=== PATIENT | female | born 1945 | race Caucasian/White ===

== ENCOUNTER → 2017-01-07 | Outpatient (CLI) | payer OTHER ==
[~2017-01-07] MED LIST: ACET-1138 PO; ASPEC81 PO; DTR/5 PO; FOSI20TA2 PO; GABA-112 PO; LEVO75TA PO; PEDICHW34 PO; SNK PO; ULT50X PO
--- NOTE | 2017-01-07 16:19 | MAMMOGRAPHY REPORT ---
UNILATERAL LEFT DIGITAL DIAGNOSTIC MAMMOGRAM: 01/07/2017 CLINICAL HISTORY: 71-year-old woman called back from screening mammography for possible clustered mi crocalcifications in the left breast. No family history of breast cancer. TECHNIQUE: Spot magnification left CC and ML views were obtained. COMPARISON: Comparison is made to exams dated: 12/25/2016 mammogram, 10/20/2015 mammogram, and 09/09/19 15 mammogram - [facility]. BREAST COMPOSITION: The tissue of the left breast is heterogeneously dense, which may obscure small masses. FINDINGS: There are vascular calcifications and scattered coarse benign calcifications within the v isualized left breast. However, there are also small faint clusters and groupings of microcalcifica tions in the central and slightly lateral left breast that were not definitely seen on prior mammogr ams to confirm stability. In particular, there is a small grouping of 3-4 round microcalcifications and adjacent faint amorphous microcalcifications in the lateral posterior breast, and slightly more medial and anterior is a faint grouping of amorphous microcalcifications. A few other round microc alcifications are scattered in the visualized breast. Options of short interval follow-up exams elvi junito sampling one of the clusters and following the other clusters in short intervals were provided t o the patient. There is no obvious associated asymmetry, mass or architectural distortions in the a shadi of the microcalcifications. We will opt to sample the dominant cluster in the lateral posterior left breast, and follow the other microcalcifications in short intervals. IMPRESSION: ACR BI-RADS CATEGORY 4B: INTERMEDIATE SUSPICION FOR MALIGNANCY Left breast stereotactic guided biopsy is recommended for a small cluster of punctate and amorphous microcalcifications in the lateral posterior breast. Pending benign pathology results, a short interval follow-up diagnostic left mammogram is recommend to ensure stability of other faint clusters of amorphous microcalcifications. These results and recommendations were discussed with the patient at the time of the exam. She tent atively scheduled the biopsy prior to leaving our department. Approximately 10% of breast cancers are not detected with mammography. A negative mammographic repor t should not delay biopsy if a clinically suggestive mass is present. Donna Mccarty M.D. ay/:01/07/2017 15:07:07 Truck Loader And Unloader: Elda DÍAZ(R)(M), [facility] letter sent: Abnormal 4/5 BI-RADS Code: ACR BI-RADS Category 4B: Intermediate Suspicion For Malignancy
== END | disposition home or self-care (01) ==
LOC: C.MAMM 14:00
PROVIDERS: ATTEND Nurse Practitioner
DX: R92.0 Mammographic microcalcification found on diagnostic imaging of breast (principal)

== ENCOUNTER → 2017-01-13 | Outpatient (CLI) | payer OTHER ==
[2017-01-13 18:15] LABS: ALT/SGPT 25 U/L (12-78); AST/SGOT 16 U/L (15-37); BLOOD UREA NITROGEN 21 mg/dl (7-18); BUN/CREATININE RATIO 20.5 (10-20); CARBON DIOXIDE 32 mmol/L (21-32); CHLORIDE 103 mmol/L (98-107); CHOLESTEROL 185 mg/dl (0-200); GLUCOSE 90 mg/dl (70-99); POTASSIUM 4.4 mmol/L (3.5-5.1); SODIUM 140 mmol/L (136-145); TRIGLYCERIDES 92 mg/dl (0-150); VERY LOW DENSITY LIPOPROT CALC 18 mg/dl
[2017-01-13 18:16] LABS: CALCIUM 9.5 mg/dl (8.5-10.1)
[2017-01-13 18:25] LABS: ALB/GLOB RATIO 1.1 (0.9-2); ALKALINE PHOSPHATASE 137 U/L (45-117); CHOLESTEROL/HDL RATIO 3.4; HDL CHOLESTEROL 54 mg/dl; LDL CHOLESTEROL CALCULATED 113 mg/dl
== END | disposition home or self-care (01) ==
LOC: C.LABBFT 09:53
PROVIDERS: ATTEND Nurse Practitioner
DX: E78.5 Hyperlipidemia, unspecified (principal); E03.9 Hypothyroidism, unspecified

== ENCOUNTER → 2017-01-14 | Outpatient (CLI) | payer OTHER ==
--- NOTE | 2017-01-14 13:52 | Discharge Instructions ---
Discharge Instructions Procedure Procedure Date: January 14, 2017. Reason for visit: Left Calcifications. Discharge Discharge Date: January 14, 2017. Discharge Diagnosis: post left breast stereotactic guided biopsy Instructions Activity Recommendations: Additional Limitations (see below) Return to School/Work: no limitations Recommended Home Diet: No Limitations Provider Instructions: ACTIVITY RECOMMENDATIONS: * No lifting, pushing, pulling or exercising the affected side for three days. RETURN TO SCHOOL/WORK: * You may return to work/school after the procedure, but do not perform any strenuous activities for 24 to 48 hours. MEDICATIONS: * Tylenol (two 325 mg) every four to six hours if needed for mild pain (if not allergic to Tylenol). DIET: * Resume previous diet. SPECIAL CARE INSTRUCTIONS: * Keep biopsy site dry for 24 hours. May shower after 24 hours, but do not soak (bathe) incision. * May remove Tegaderm (plastic patch) tomorrow AFTER showering. * Leave the steri-strips on for one week. Allow the steri-strips to fall off by themselves. If not off after one week, you may remove them. You may place a Bandaid crosswise over the strips, if desired. * Apply ice 10 minutes on and 10 minutes off as needed. * Wear a bra at bedtime to sleep more comfortably for 2-3 days. * Your referring physician should have the results after approximately 5 to 7 business days. * Call for unusual bleeding, fever, drainage, etc or if you have any questions call [phone] during normal business hours or after hours call Dr Mccarty, . FOLLOW UP VISIT: Follow-up with Referring Physician as scheduled. Allergies Coded Allergies: Oxycodone (Verified Adverse Reaction, Intermediate, N/V, 08/14/15) Sumi Rojas Recommendations: Call your doctor if: * Temperature above 101 degrees * Pain not relieved by pain medicine ordered * There is increased drainage or redness from any incision * You have any unanswered questions or concerns. Your Doctors Instructions noted above were prepared by provider Donna Mccarty. Patient Signature Section: Patient Instructions Signature Page Rosy Peña Patient (or Guardian) Signature/Date: I have read and understand the instructions given to me by my caregivers. Caregiver/RN/Doctor Signature/Date: The above-named patient and/or guardian has received patient instructions on this date. + Original Patient Signature Page (only) stays with chart. Please make copy for patient.
--- NOTE | 2017-01-14 15:21 | MAMMOGRAPHY REPORT ---
THIS REPORT HAS BEEN AMENDED. AMENDMENT: 01/22/2017 Donna Mccarty M.D. Pathology results from the stereotactic guided biopsy of clustered microcalcifications in the lateral left breast yielded fibrocystic change with microcalcifications. Sclerosing adenosis. No tumor see n. The pathology results are concordant with the imaging appearance. As per prior diagnostic mammog shabnam report recommendations, a six-month follow-up left diagnostic mammogram including repeat spot mag nification views is recommended to ensure stability of other clustered microcalcifications identified in the left breast. STEREOTACTIC GUIDED BIOPSY LEFT BREAST: 01/14/2017 CLINICAL HISTORY: Cluster of indeterminate microcalcifications in the lateral posterior left breast. Patient presents for stereotactic guided biopsy. COMPARISON: Comparison is made to exams dated: 01/07/2017 mammogram, 12/25/2016 mammogram, 10/20/2015 ma mmogram, and 09/09/2014 mammogram - [facility]. PATIENT CONSENT: After explaining the risks, benefits and alternatives of the procedure to the patien t, informed consent was obtained both verbally and in writing. Specific risks include: Bleeding, inf ection, puncture of adjacent structure, nontarget biopsy, sampling error, metal allergy and medicatio n reaction. PROCEDURE DESCRIPTION: A time-out was performed and the left breast was confirmed as the site of biop sy. The patient was placed prone on the stereotactic biopsy table and the breast was placed in CC fro m above compression. A digester capper image was obtained but the microcalcifications were not clearly identifi ed. Then positioning was changed to CC from below compression. A digester capper image did demonstrate the gr ouped microcalcifications in question. They are amenable to sterotactic biopsy. Then +15 and -15 s tereo pair images were obtained. The calcifications were targeted utilizing the coordinates obtained by the computer. The skin was prepped with Betadine. 1% Lidocaine with and without epinipherine was administered as local anesthesia. A small skin incision was made. Through the incision, the needle w as inserted to the depth determined by the computer. 10 samples were obtained using a Playdemic 9-g auge vacuum-assisted biopsy device. The specimen radiograph demonstrated several medical collections representative micro calcifications, therefore, a metallic marker was placed at the biopsy site. There was no immediate co mplication. Hemostasis was achieved after several minutes of manual compression. The samples were se nt to pathology in 2 appropriately labeled containers, with calcifications and without calcifications , but all of the samples were obtained from the same single biopsy site. Postprocedure left CC and ML views demonstrate a new double-shaped metallic biopsy marker and no sign ificant hematoma in the lower outer posterior left breast, at the site of the biopsied clustered micr ocalcifications in question. Pending benign pathology results, a follow-up diagnostic mammogram of the left breast including spot magnification views is recommended to assure stability of other faint clusters of microcalcifications seen on the diagnostic mammograms dated 01/07/2017. IMPRESSION: STEREOTACTIC GUIDED BIOPSY Status post stereotactic guided biopsy of a small cluster of rounded punctate microcalcifications in the lower outer posterior left breast, with biopsy marker placed at the site. The patient will receive notification of the biopsy results from her referring physician. Pending benign pathology results, a follow-up diagnostic mammogram of the left breast including spot magnification views is recommended to assure stability of other faint clusters of microcalcifications seen on the diagnostic mammograms dated 01/07/2017. Donna Mccarty M.D. ay/:01/14/2017 14:06:27 Sales Development Executive: Kallie Miller, [facility]
--- NOTE | 2017-01-14 15:23 | MAMMOGRAPHY REPORT ---
UNILATERAL LEFT DIGITAL DIAGNOSTIC MAMMOGRAM: 01/14/2017 CLINICAL HISTORY: Status post stereotactic guided biopsy of faint grouped microcalcifications in the lateral left breast. Please refer to the report from left breast stereotactic guided biopsy performed at the same time fo r full detail. IMPRESSION: POST PROCEDURE IMAGING FOR MARKER PLACEMENT Please refer to the report from left breast stereotactic guided biopsy performed at the same time fo r full detail. Pending benign pathology results, a follow-up diagnostic left mammogram including spot magnification views is recommended to ensure stability of other faint non-biopsied clusters of microcalcification s, described on the previous diagnostic mammogram report. Approximately 10% of breast cancers are not detected with mammography. A negative mammographic repor t should not delay biopsy if a clinically suggestive mass is present. Donna Mccarty M.D. ay/:01/14/2017 13:48:08 B2B Sales Executive: Kallie Miller, [facility] BI-RADS Code: Post Procedure Imaging For Marker Placement
== END | disposition home or self-care (01) ==
LOC: C.MAMM 12:32
PROVIDERS: ATTEND Nurse Practitioner
DX: R92.0 Mammographic microcalcification found on diagnostic imaging of breast (principal); N60.12 Diffuse cystic mastopathy of left breast; N60.22 Fibroadenosis of left breast

== ENCOUNTER → 2017-01-29 | Day surgery (SDC) | payer OTHER ==
[~2017-01-29] VITALS: Ht 152.4 cm; Wt 70.9 kg
[~2017-01-29] MED LIST changes: +SODIUM CHLORIDE 0.9% 500ML 500 ML IV ONE
[2017-01-29 14:36] VITALS: Ht 152.4 cm; Wt 70.9 kg
--- NOTE | 2017-01-29 15:54 | Endo History and Physical ---
History & Physical Date of Service: Jan 29, 2017. Chief Complaint: HISTORY OF POLYPS Referring Physician: DR KELLY History of Present Illness 71 yo CF who presents for colonoscopy secondary to history of colon polyps. Past Medical History Arthritis Past Surgical History Hx Cardiac Surgery: No Hx Internal Defibrillator: No Hx Pacemaker: No Hx Abdominal Surgery: Yes (Gall bladder 5years ago, Hernia 16 years ago) Hx Post-Op Nausea and Vomiting: No (DENIES ANY COMPLICATIONS W/ ANESTHESIA.) Hx Cancer Surgery: No Hx Thoracic Surgery: No Hx Orthopedic: Yes (Rods in both legs 16 years ago. Left knee replaced 2007, Right hip 10/2015) Hx Urinary Tract Surgery: No Family History Polyp Social History Smoking Status: Never Smoker Hx Substance Use: No Hx Alcohol Use: No Allergies Coded Allergies: Aspirin (Unverified Allergy, Unknown, GI SYMPTOMS, 01/29/17) Grass (Unverified Allergy, Unknown, RASH, 01/29/17) FACIAL SWELLING Oxycodone (Verified Adverse Reaction, Intermediate, N/V, 01/29/17) Current Medications Reported Home Medications Medications Dose Route/Sig Max Daily Dose Days Date Category Gummi Bear Multivitamin/M (Pediatric Multiple Vitamin W/) 1 Chw Chw 2 PO DAILY 01/29/17 Reported Neurontin (Gabapentin) 100 Mg Cap 100 Mg PO TID 01/29/17 Reported Tylenol Extra Strength (Acetaminophen) 500 Mg Tab 1,000 Mg PO Q8H 2 11/20/15 Rx Synthroid (Levothyroxine Sodium) 75 Mcg Tab 75 Mcg PO DAILY 11/16/15 Reported Ditropan (Oxybutynin Chloride) 5 Mg Tab 5 Mg PO BID 01/11/12 Reported Vital Signs Weight (Kilograms): 70.9 Height (Feet): 5 Height (Inches): 0 Date Time Temp Pulse Resp B/P (MAP) Pulse Ox O2 Delivery O2 Flow Rate FiO2 01/29/17 15:17 36.2 62 20 180/62 99 Room Air Physical Exam General Appearance: WD/WN, no apparent distress Respiratory/Chest: Auscultation: breath sounds normal Cardiovascular: Heart Auscultation: RRR Abdomen: Bowel Sounds: normal Inspection & Palpation: soft, non-distended, no tenderness, guarding & rebound Assessment and Plan Assessment: 71 yo CF who presents for colonoscopy secondary to history of colon polyps. Plan: Proceed with colonoscopy.
--- NOTE | 2017-01-29 16:12 | Discharge Instructions ---
Endoscopy Patient Instructions Date / Procedure(s) Performed Jan 29, 2017. Colonoscopy Allergy Information Coded Allergies: Aspirin (Unverified Allergy, Unknown, GI SYMPTOMS, 01/29/17) Grass (Unverified Allergy, Unknown, RASH, 01/29/17) FACIAL SWELLING Oxycodone (Verified Adverse Reaction, Intermediate, N/V, 01/29/17) Discharge Date / Findings Jan 29, 2017. Diverticulosis Internal hemorrhoids Medication Instructions OK to resume all medications today as prescribed Medications Dose Route/Sig Max Daily Dose Days Date Category Gummi Bear Multivitamin/M (Pediatric Multiple Vitamin W/) 1 Chw Chw 2 PO DAILY 01/29/17 Reported Neurontin (Gabapentin) 100 Mg Cap 100 Mg PO TID 01/29/17 Reported Tylenol Extra Strength (Acetaminophen) 500 Mg Tab 1,000 Mg PO Q8H 2 11/20/15 Rx Synthroid (Levothyroxine Sodium) 75 Mcg Tab 75 Mcg PO DAILY 11/16/15 Reported Ditropan (Oxybutynin Chloride) 5 Mg Tab 5 Mg PO BID 01/11/12 Reported Provider Instructions Activity Restrictions - No exercising or heavy lifting for 24 hours. - Do not drink alcohol the day of the procedure. - Do not drive a car or operate machinery until the day after the procedure. - Do not make any important decisions or sign important papers in 24 hours after the procedure. Following Day: - Return to full activity which may include returning to work/school. Diet Start your diet with liquids and light foods (jello, soup, juice, toast). Then eat your usual diet if not nauseated. Treatment For Common After Affects For mild abdominal pain, bloating, or excessive gas: - Rest - Eat lightly - Lie on right side Follow-Up Information Follow-up with DR KELLY as scheduled Anesthesia Information What You Should Know You have had a procedure that required some medicine to reduce anxiety and discomfort. This treatment is called moderate sedation. After receiving the treatment, you may be sleepy, but you will be able to breathe on your own. The effects of the treatment may last for several hours. Follow these instructions along with Activity/Diet recommendations noted above: * Do NOT do anything where dizziness or clumsiness would be dangerous. * Rest quietly at home today, then you can be up and about tomorrow. * Have a responsible person stay with you the rest of today. * You may have had an I.V. today. If so, you may take the dressing off later today. Recommendations Call your doctor if: * Trouble breathing * Continuous vomiting for more than 24 hours * Temperature above 101 degrees * Severe abdominal pain or bloating * Pain not relieved by pain medicine ordered * There is increased drainage or redness from any incision * A large amount of rectal bleeding greater than 2-3 tablespoons. (If you had a polyp/s removed or have hemorrhoids, a small amount of blood - from the rectum is to be expected.) * You have any unanswered questions or concerns. IN THE EVENT OF A SERIOUS EMERGENCY, GO TO THE NEAREST EMERGENCY ROOM Your discharge instructions were prepared by provider José Torre. Patient Instructions Signature Page Rosy Peña Patient (or Guardian) Signature/Date: I have read and understand the instructions given to me by my caregivers. Caregiver/RN/Doctor Signature/Date: The above-named patient and/or guardian has received patient instructions on this date. + Original Patient Signature Page (only) stays with chart. Please make copy for patient.
--- NOTE | 2017-01-29 16:16 | GI REPORT ---
Procedure Date: 01/29/2017 3:36 PM Procedure: Colonoscopy Indications: High risk colon cancer surveillance: Personal history of colonic polyps Medicines: Monitored Anesthesia Care Complications: No immediate complications. Estimated Blood Loss: Estimated blood loss: none. Procedure: Pre-Anesthesia Assessment: - Prior to the procedure, a History and Physical was performed, and patient medications and allergies were reviewed. The patient's tolerance of previous anesthesia was also reviewed. The risks and benefits of the procedure and the sedation options and risks were discussed with the patient. All questions were answered, and informed consent was obtained. Prior Anticoagulants: The patient has taken no previous anticoagulant or antiplatelet agents. ASA Grade Assessment: III - A patient with severe systemic disease. After reviewing the risks and benefits, the patient was deemed in satisfactory condition to undergo the procedure. After I obtained informed consent, the scope was passed under direct vision. Throughout the procedure, the patient's blood pressure, pulse, and oxygen saturations were monitored continuously. The scope was introduced through the anus and advanced to the terminal ileum. The colonoscopy was performed without difficulty. The patient tolerated the procedure well. The quality of the bowel preparation was good. The terminal ileum, ileocecal valve, appendiceal orifice, and rectum were photographed. Findings: Multiple small-mouthed diverticula were found in the sigmoid colon. Non-bleeding internal hemorrhoids were found during retroflexion. The hemorrhoids were small. Impression: - Diverticulosis in the sigmoid colon. - Non-bleeding internal hemorrhoids. - No specimens collected. Recommendation: - Resume previous diet. - Continue present medications. - No repeat colonoscopy due to age and the absence of advanced adenomas. - Return to primary care physician as previously scheduled. José Torre, DO 01/29/2017 4:15:50 PM This report has been signed electronically. Note Initiated On: 01/29/2017 3:36 PM I attest to the content of the Intraoperative Record and orders documented therein, exceptions below
--- NOTE | 2017-01-29 16:24 | Anesthesiology Progress Note ---
Anesthesia Post Op Note Date & Time Jan 29, 2017 at 16:24 Vital Signs Pain Intensity: 0 Vital Signs Past 12 Hours Date Time Temp Pulse Resp B/P (MAP) Pulse Ox O2 Delivery O2 Flow Rate FiO2 01/29/17 16:15 62 16 107/57 99 Room Air 01/29/17 15:17 36.2 62 20 180/62 99 Room Air Notes Mental Status: alert / awake / arousable, participated in evaluation Pt Amnestic to Procedure: Yes Nausea / Vomiting: adequately controlled Pain: adequately controlled Airway Patency, RR, SpO2: stable & adequate BP & HR: stable & adequate Hydration State: stable & adequate Anesthetic Complications: no major complications apparent
[2017-01-29 16:35] VITALS: BP 164/80; PULSE 64; O2SAT 99
== END | disposition home or self-care (01) ==
LOC: C.GI 14:22
PROVIDERS: ATTEND Internal Medicine
DX: Z12.11 Encounter for screening for malignant neoplasm of colon (principal); Z86.010 Personal history of colon polyps; K57.30 Diverticulosis of large intestine without perforation or abscess without bleeding; K64.8 Other hemorrhoids; I10 Essential (primary) hypertension; Z68.30 Body mass index [BMI] 30.0-30.9, adult; E66.9 Obesity, unspecified; Z96.641 Presence of right artificial hip joint; Z96.652 Presence of left artificial knee joint; Z88.5 Allergy status to narcotic agent; Z83.71 Family history of colonic polyps

== ENCOUNTER → 2017-02-06 | Outpatient (CLI) | payer OTHER ==
[~2017-02-06] MED LIST changes: -ASPEC81 PO; -FOSI20TA2 PO; -SNK PO; -SODIUM CHLORIDE 0.9% 500ML 500 ML IV ONE; -ULT50X PO
== END | disposition home or self-care (01) ==
LOC: C.MAMM 09:20
PROVIDERS: ATTEND Nurse Practitioner
DX: M85.88 Other specified disorders of bone density and structure, other site (principal); M81.0 Age-related osteoporosis without current pathological fracture

== ENCOUNTER → 2017-05-19 | Outpatient (CLI) | payer OTHER ==
[~2017-05-19] MED LIST changes: -DTR/5 PO; +OXYB5TAB74 PO
[2017-05-19 17:29] LABS: URINE APPEARANCE CLEAR (CLEAR); URINE BILIRUBIN NEG (NEG); URINE COLOR YELLOW; URINE NITRITE NEG (NEG); URINE SPECIFIC GRAVITY 1.015 (1.000-1.030); UROBILINOGEN NEG (NEG)
[2017-05-19 17:44] LABS: MANUAL MICROSCOPIC REQUIRED? NO; REVIEW REQ? NO
== END | disposition home or self-care (01) ==
LOC: C.LABBFT 14:09
PROVIDERS: ATTEND Nurse Practitioner
DX: R39.9 Unspecified symptoms and signs involving the genitourinary system (principal)

== ENCOUNTER → 2017-07-23 | Outpatient (CLI) | payer OTHER ==
[~2017-07-23] MED LIST changes: +DTR/5 PO; -OXYB5TAB74 PO
--- NOTE | 2017-07-23 13:44 | MAMMOGRAPHY REPORT ---
UNILATERAL LEFT DIGITAL DIAGNOSTIC MAMMOGRAM TOMOSYNTHESIS WITH CAD AND TARGETED LEFT ULTRASOUND: CLINICAL HISTORY: 72-year-old woman presents for follow-up in the left breast status post benign ster eotactic biopsy of a small grouping of punctate macro calcifications in the lower outer posterior eris ast. She presents to reassess other non-biopsied grouped microcalcifications seen mammographically. During this diagnostic evaluation she reported pain in her left axillary and lateral breast for whic h ultrasound was also performed. TECHNIQUE: Left CC and MLO 2-D and tomosynthesis images, repeat left MLO 2-D and spot magnification l eft CC and ML views were obtained. . COMPARISON: Comparison is made to exams dated: 01/14/2017 mammogram, 01/07/2017 mammogram, 12/25/2016 ma mmogram, 10/20/2015 mammogram, and 09/09/2014 mammogram - [facility]. BREAST COMPOSITION: There are scattered areas of fibroglandular density in the left breast. FINDINGS: There is a stable dumbbell shaped biopsy marker clip in the lower outer posterior left isabell st, with adjacent asymmetry, denoting the biopsy cavity from prior prior benign stereotactic biopsy. The glandular pattern of the left breast is similar to prior mammograms. There are numerous benign coarse calcifications. Spot magnification views of the left breast demonstrate another faint groupin g of punctate microcalcifications located medial to the biopsy marker clip in the middle one third of the breast that appears stable compared to the spot magnification views obtained 01/07/2017, therefo re likely benign. No new suspicious mass, architectural distortion or cluster of suspicious microcal cifications is seen. Targeted ultrasound was also performed in the left axilla and upper outer quadrant of the left latera l breast in the area of persistent pain described by the patient. A few morphologically normal lymph nodes are seen in the inferior left axilla. No suspicious solid or cystic mass or focal skin thicke leighann is identified. No drainable fluid collection. IMPRESSION: ACR-BI-RADS CATEGORY 3: PROBABLY BENIGN, TARGETED ULTRASOUND ACR-BI-RADS CATEGORY 3: PRO BABLY BENIGN 1. Stable mammographic appearance of the left breast including postbiopsy changes in the lower outer breast and a stable faint cluster of punctate microcalcifications also in the lateral left breast. Another short interval follow-up left diagnostic mammogram including spot magnification views is alice mmended to ensure longer stability of the non-biopsied cluster of calcifications. Annual right mammo graphy will also be due at that time. 2. No suspicious mammographic or targeted sonographic evidence of malignancy in the area of pain wit hin the left axilla and upper outer left lateral breast in the area of pain described by the patient. Therefore, continued clinical follow-up is recommended. These results and recommendations were discussed with the patient at the time of the exam. Approximately 10% of breast cancers are not detected with mammography. A negative mammographic report should not delay biopsy if a clinically suggestive mass is present. Donna Mccarty M.D. ay/:07/23/2017 13:22:52 Grill Cook: Elda DÍAZ(Safia)(Annamaria), [facility] letter sent: Follow Up Recommended 3 BI-RADS Code: ACR-BI-RADS Category 3: Probably Benign Ultrasound BI-RADS: ACR-BI-RADS Category 3: Pr obably Benign
== END | disposition home or self-care (01) ==
LOC: C.MAMM 11:15
PROVIDERS: ATTEND Nurse Practitioner
DX: Z09 Encounter for follow-up examination after completed treatment for conditions other than malignant neoplasm (principal); R92.0 Mammographic microcalcification found on diagnostic imaging of breast

== ENCOUNTER → 2017-07-29 | Outpatient (CLI) | payer OTHER ==
[2017-07-29 17:31] LABS: HEMATOCRIT 36.6 % (37-47); MEAN CELL VOLUME 93.6 fL (80-100); MEAN CORPUSCULAR HEMOGLOBIN 30.2 pg (25-34); MEAN CORPUSCULAR HGB CONC 32.2 g/dl (32-36); MEAN PLATELET VOLUME 9.9 fL (7.4-10.4); PLATELET COUNT 243 K/uL (130-400); RED BLOOD COUNT 3.91 M/uL (4.2-5.4); WHITE BLOOD COUNT 5.95 K/uL (4.8-10.8)
[2017-07-29 17:43] LABS: ALT/SGPT 22 U/L (12-78); BLOOD UREA NITROGEN 15 mg/dl (7-18); CARBON DIOXIDE 30 mmol/L (21-32); CHLORIDE 106 mmol/L (98-107); CHOLESTEROL 190 mg/dl (0-200); CREATININE 0.99 mg/dl (0.60-1.20); GLUCOSE 99 mg/dl (70-99); POTASSIUM 4.2 mmol/L (3.5-5.1); SODIUM 140 mmol/L (136-145)
[2017-07-29 18:00] LABS: ALKALINE PHOSPHATASE 108 U/L (45-117); AST/SGOT 18 U/L (15-37); HDL CHOLESTEROL 48 mg/dl; LDL CHOLESTEROL CALCULATED 104 mg/dl; TRIGLYCERIDES 191 mg/dl (0-150); VERY LOW DENSITY LIPOPROT CALC 38 mg/dl
== END | disposition home or self-care (01) ==
LOC: C.LABBFT 13:41
PROVIDERS: ATTEND Nurse Practitioner
DX: E78.5 Hyperlipidemia, unspecified (principal); E55.9 Vitamin D deficiency, unspecified; E03.9 Hypothyroidism, unspecified; D64.9 Anemia, unspecified

== ENCOUNTER → 2018-01-06 | Outpatient (CLI) | payer OTHER ==
[~2018-01-06] MED LIST changes: +ACET-1256 PO; +CHOL1000 PO; +FOSI20TA2 PO; +FSMD/70 PO; +MULT-1018 PO; +NYSTCRE11 TOP
== END | disposition home or self-care (01) ==
LOC: C.RDSM 10:30
PROVIDERS: ATTEND Family Medicine Sports Medicine
DX: M25.561 Pain in right knee (principal)

== ENCOUNTER → 2018-01-07 | Outpatient (CLI) | payer OTHER | END | disposition home or self-care (01) | LOC: C.RDSM 14:59 | PROVIDERS: ATTEND Orthopaedic Surgery Sports Medicine | DX: M17.11 Unilateral primary osteoarthritis, right knee (principal); Z96.9 Presence of functional implant, unspecified ==

== ENCOUNTER → 2018-04-14 | Day surgery (SDC) | payer OTHER ==
[2018-01-13 08:15] VITALS: BMI 40.0
[2018-03-25 10:11] VITALS: BMI 39.0
[2018-03-30 14:41] VITALS: BMI 42.0
--- NOTE | 2018-03-30 15:01 | PAT Medication Instructions ---
"Service Date Mar 30, 2018. Current Home Medication List Acetaminophen (Tylenol), 1,000 MG PO Q12 PRN for Pain Alendronate/Cholecalciferol (Fosamax+D 70MG/2800 Iu), 1 TABLET PO WK Cholecalciferol (Vitamin D3), 1 TAB PO QAM Fosinopril Sodium (Monopril), 20 MG PO QAM Gabapentin (Neurontin), 100 MG PO TID Levothyroxine Sodium (Synthroid), 75 MCG PO QAM Multiple Vitamins W/ Minerals (Hair Skin and Nails Formu), 2 TAB PO QAM Nystatin/Triamcinolone (Mycogen || ), 1 DOSE TOP UD PRN for PRN Oxybutynin Chloride (Ditropan), 5 MG PO BID Pediatric Multiple Vitamin W/ (Gummi Bear Multivitamin/M), 2 PO QAM Medication Instructions For Your Scheduled Surgery - Hold the following medications the morning of surgery: Alendronate/Cholecalciferol (Fosamax+D 70MG/2800 Iu), 1 TABLET PO WK Cholecalciferol (Vitamin D3), 1 TAB PO QAM Fosinopril Sodium (Monopril), 20 MG PO QAM Multiple Vitamins W/ Minerals (Hair Skin and Nails Formu), 2 TAB PO QAM Nystatin/Triamcinolone (Mycogen || ), 1 DOSE TOP UD PRN for PRN Oxybutynin Chloride (Ditropan), 5 MG PO BID Pediatric Multiple Vitamin W/ (Gummi Bear Multivitamin/M), 2 PO QAM - Take the following medications the morning of surgery with a sip of water: Acetaminophen (Tylenol), 1,000 MG PO Q12 PRN for Pain (if needed, may be taken up to four hours before surgery) Gabapentin (Neurontin), 100 MG PO TID Levothyroxine Sodium (Synthroid), 75 MCG PO QAM - Take the following medications as scheduled the night before surgery: Acetaminophen (Tylenol), 1,000 MG PO Q12 PRN for Pain (if needed) Gabapentin (Neurontin), 100 MG PO TID Nystatin/Triamcinolone (Mycogen || ), 1 DOSE TOP UD PRN for PRN (if needed) Oxybutynin Chloride (Ditropan), 5 MG PO BID If you have any questions please call us at [phone] or [phone] or [phone]"
--- NOTE | 2018-03-30 16:13 | DIAGNOSTIC IMAGING REPORT ---
CHEST 2 VIEWS ROUTINE CLINICAL HISTORY: pre-op, adventitious lung sounds preoperative evaluation COMPARISON STUDY: 11/16/2015 FINDINGS: The bones soft tissues and hemidiaphragms are normal. The cardiomediastinal silhouette is normal. The lungs are clear. The pulmonary vasculature is normal. IMPRESSION: Negative chest. The above report was generated using voice recognition software. It may contain grammatical, syntax or spelling errors. Electronically signed by: Raji Rich M.D. 03/30/2018 4:11 PM Dictated Date/Time: 03/30/2018 4:11 PM
[2018-03-30 16:22] LABS: BASO % 0.4 %; BASO ABS # 0.02 K/uL (0-0.2); EOS ABS # 0.22 K/uL (0-0.5); HEMATOCRIT 35.8 % (37-47); HEMOGLOBIN 11.8 g/dL (12.0-16.0); IG# 0.01 K/uL (0.00-0.02); LYMPH % 12.8 %; LYMPH ABS # 0.71 K/uL (1.2-3.4); MEAN CELL VOLUME 90.6 fL (80-100); MEAN CORPUSCULAR HEMOGLOBIN 29.9 pg (25-34); MEAN PLATELET VOLUME 9.8 fL (7.4-10.4); MONO % 9.2 %; MONO ABS # 0.51 K/uL (0.11-0.59); NEUT % 73.4 %; NEUT ABS # 4.08 K/uL (1.4-6.5); PLATELET COUNT 242 K/uL (130-400); RED CELL DISTRIBUTION WIDTH SD 42.8 fL (36.4-46.3); WHITE BLOOD COUNT 5.55 K/uL (4.8-10.8)
[2018-03-30 16:32] LABS: CALCIUM 9.1 mg/dl (8.5-10.1); CREATININE 0.96 mg/dl (0.60-1.20)
[2018-03-30 16:35] LABS: PTT PATIENT 25.7 SECONDS (21.0-31.0)
[~2018-04-14] VITALS: Ht 152.4 cm; Wt 97.6 kg
[~2018-04-14] MED LIST changes: -ACET-1138 PO; +BUPIVACAINE 0.5 % 5 MG/1 ML PF 10ML VIAL ONE; +CEFAZOLIN 2000MG IV PUSH 15 ML IV SCH; +CHECK SCOPOLAMINE PATCH PLACEMENT SCH; +CeleBREX 200 MG CAP PO SCH; +FENTANYL CITRATE INJ 50 MCG/1 ML 2 ML VIAL ONE; +LACTATED RINGER'S 1000ML 1,000 ML IV SCH; +LACTATED RINGER'S 1000ML 500 ML IV SCH; +LACTATED RINGER'S 1000ML IV SCH; +LIDOCAINE HCL 2% 2 ML VIAL (20MG/ML) ONE; +MIDAZOLAM HCL 1 MG/ML 2ML VIAL ONE; +ORTHO JOINT ANESTHETIC ONE; +POVIDONE-IODINE OP SOLN 30 ML BTL ONE; +PROPOFOL IV EMULSION 10 MG/ML 20 ML VIAL ONE; +ROPIVACAINE 0.5% 5 MG/ML 30 ML VIAL ONE; +ROPIVACAINE 5MG/ML 30 ML 150 MG, BUPIVACAINE 0.5% MPF INJ 30 ML, EpINEphrine HCL INJ 0.... INFIL SCH; +SCOPOLAMINE 1.5 MG TDSY TD SCH; +TRANEXAMIC ACID INJ 1,000 MG x 2 Bags IV SCH
[2018-04-14 06:05] VITALS: BP 176/72; PULSE 71; TEMP 36.4; O2SAT 97; Ht 152.4 cm; Wt 97.6 kg
--- NOTE | 2018-04-14 08:38 | Progress Note ---
Progress Note Date of Service Apr 14, 2018. Progress Note On the morning of surgery the patient was noted to have bilateral pitting edema of her lower extremities and denies ever having that before. Dr. Weldon was concerned about possible right sided heart failure. He decided to reschedule the surgery and have her get a cardiac workup with echocardiogram before she leaves today.
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
--- NOTE | 2018-04-14 14:13 | Progress Note ---
Progress Note Date of Service Apr 14, 2018. Progress Note Patient was seen in the prep and hold area prior to planned RLE hardware removal and TKA. She was noted to have significant swelling of bilateral lower extremities which was new and 2+ pitting edema. In addition she appeared to have a superficial skin infection either fungal or yeast in the folds of her abdomen and thigh. Due to the new onset 2+ pitting edema, the case was canceled for today. A stat consult for cardiology was obtained. She will follow-up with cardiology and her PCP has an outpatient. We will attempt to put her back on the OR schedule once she is medically stable.
== END | disposition home or self-care (01) ==
LOC: C.ACU 05:15
PROVIDERS: ATTEND Orthopaedic Surgery Sports Medicine
DX: M81.0 Age-related osteoporosis without current pathological fracture (principal); R60.0 Localized edema; I10 Essential (primary) hypertension; R07.2 Precordial pain; G62.9 Polyneuropathy, unspecified; E03.9 Hypothyroidism, unspecified; M17.11 Unilateral primary osteoarthritis, right knee; Z53.09 Procedure and treatment not carried out because of other contraindication; Z88.6 Allergy status to analgesic agent; Z88.8 Allergy status to other drugs, medicaments and biological substances

== ENCOUNTER 2019-01-12 05:20 | Inpatient (IN) ==
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
[2019-01-12] MEDS ORDERED: ROPIVACAINE 0.5% HCL/PF 150 MG, BUPIVACAINE 0.5% MPF 30 ML, EPINEPHrine 30MG/30ML (OR U... INFIL SCH (06:00)
[2019-01-12] MEDS ORDERED: SCOPOLAMINE 1.5 MG TDSY TD SCH ×2 (06:00)
[2019-01-12] MEDS ORDERED: SODIUM CHLORIDE 0.9% 1000ML IV SCH ×2 (06:00)
[2019-01-12] MEDS ORDERED: ROPIVACAINE 0.5% HCL/PF 150 MG, BUPIVACAINE 0.5% MPF 30 ML, EPINEPHrine 0.15 MG, Ketoro... INFIL SCH (06:00)
[2019-01-12] MEDS ORDERED: TRANEXAMIC ACID 1,000 MG **IV Pre-op IV SCH (06:00)
[2019-01-12] MEDS ORDERED: CEFAZOLIN 2000MG 2,000 MG/15 ML SYR IV SCH (06:00)
[2019-01-12] MEDS ORDERED: CeleBREX 200 MG CAP PO SCH (06:00)
[2019-01-12] MEDS ORDERED: DEXAMETHASONE SOD INJ 4 MG/ML VIAL ONE (06:24)
[2019-01-12] MEDS ORDERED: BUPIVACAINE/EPINEPHRINE 0.5% MPF 1:200,000 30 ML VIAL ONE (06:24)
[2019-01-12] MEDS ORDERED: TRANEXAMIC ACID 1,000 MG **IV Intra-op IV SCH (06:30)
[2019-01-12] MEDS ORDERED: POVIDONE-IODINE OP SOLN 30 ML BTL ONE (06:36)
--- NOTE | 2019-01-12 06:41 | History & Physical Bridge Note ---
Date of Service January 12, 2019 History & Physical Bridge Note I have examined the patient, reviewed the History & Physical and in the interval since the performance of the History & Physical I have noted the following changes of clinical significance: no changes noted
[2019-01-12] MEDS ORDERED: MIDAZOLAM HCL 1 MG/ML 2ML VIAL ONE (06:47)
[2019-01-12] MEDS ORDERED: fentaNYL citrate 100 MCG/2 ML VIAL ONE ×2 (06:47→10:22)
[2019-01-12 07:06] LABS: Partial Thromboplastin Time 27.3 Seconds (21.0-31.0)
[2019-01-12] MEDS ORDERED: PHENYLEPHRINE 100MCG/ML 5ML SYR ONE (08:44)
[2019-01-12] MEDS ORDERED: BUPIVACAINE 0.5 % 5 MG/1 ML PF 10ML VIAL ONE (08:44)
[2019-01-12] MEDS ORDERED: ePHEDrine sulfate 50 MG/ML SYR ONE ×2 (08:44→10:41)
[2019-01-12] MEDS ORDERED: PROPOFOL IV EMULSION 10 MG/ML 20 ML VIAL IV ONE ×2 (08:44→10:24)
[2019-01-12] MEDS ORDERED: fentaNYL citrate 100 MCG/2 ML VIAL IV PRN (08:53)
[2019-01-12] MEDS ORDERED: ONDANSETRON INJ 2 MG/ML 2 ML VIAL IV PRN ×2 (08:53→12:40)
[2019-01-12] MEDS ORDERED: ATROPINE SULFATE 0.1 MG/ML 10ML SYR IV PRN (08:53)
[2019-01-12] MEDS ORDERED: PROMETHAZINE HCL 6.25 MG in SODIUM CHLORIDE 0.9% 50 ML IV PRN (08:53)
[2019-01-12] MEDS ORDERED: ePHEDrine sulfate 50 MG/ML AMP IV PRN (08:53)
[2019-01-12] MEDS ORDERED: HYDROmorphone INJ 1 MG/ML SYRINGE IV PRN (08:53)
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
--- NOTE | 2019-01-12 12:16 | Post Operative Brief Note ---
Immediate Post Op Note v1 Date of Surgery January 12, 2019 Pre & Post Diagnosis Operation Date: 01/12/19 07:00 Pre-Op Diagnosis: Right Knee Osteoarthritis, Retained Hardware Post-Op Diagnosis: Right Knee Osteoarthritis, Retained Hardware Procedure Operation Date: 01/12/19 07:00 Actual Procedures p Right Total Knee Arthroplasty, Open Hardware Removal, deep(Right) - Hermilo Weldon MD Surgeon Hermilo Weldon MD Mental Health Technician Laura Iniguez PA-C (No fellow avail) Estimated Blood Loss 120 Findings Consistent with Post-Op Diagnosis Fluids 1500 cc Specimens R knee bone contents, retained hardware Drains Cote Catheter (16 [place] 10 ml balloon) Anesthesia Type MAC Spinal Regional Complications Small avulsion Inferior pole patella fracture, into peg hole
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
[2019-01-12] MEDS ORDERED: BISACODYL 10 MG SUPP PR PRN (12:40)
[2019-01-12] MEDS ORDERED: HYDROmorphone INJ 0.5 MG/0.5 ML SYR IV PRN (12:40)
[2019-01-12] MEDS ORDERED: METOCLOPRAMIDE HCL INJ 5 MG/ML 2 ML VIAL IV PRN (12:40)
[2019-01-12] MEDS ORDERED: DiphenhydrAMINE HCL 50 MG/ML VIAL IV PRN (12:40)
[2019-01-12] MEDS ORDERED: ALUMINUM/MAGNESIUM SUSP 30 ML UDC PO PRN (12:40)
[2019-01-12] MEDS ORDERED: MAGNESIUM HYDROXIDE SUSP 30 ML UDC PO PRN (12:40)
[2019-01-12] MEDS ORDERED: NALOXONE HCL 0.4 MG/1 ML VIAL/CARP IV PRN (12:40)
--- NOTE | 2019-01-12 12:43 | Operative Report ---
Post Operative Report Pre & Post Diagnosis Operation Date: 01/12/19 07:00 Pre-Op Diagnosis: Right Knee Osteoarthritis, Retained Hardware Post-Op Diagnosis: Right Knee Osteoarthritis, Retained Hardware Procedure Operation Date: 01/12/19 07:00 Actual Procedures p Right Total Knee Arthroplasty, Open Hardware Removal(Right) - Hermilo Weldon MD Surgeon Hermilo Weldon MD National Coverage Specialist Laura Iniguez PA-C (No fellow avail) Estimated Blood Loss 120 Findings Consistent with Post-Op Diagnosis Specimens bone and soft tissue Complications Right knee patellar fracture Indications See Dr Weldon operative report for complete details. Description of Procedure See Dr Weldon operative report for complete details. I was drug safety assistant during entire case to include prepping, draping, limb and instrument handling, wound closure, dressings. I attest to the content of the Intraoperative Record and any orders documented therein. Any exceptions are noted below.
--- NOTE | 2019-01-12 12:52 | Anesthesiology Progress Note ---
Date of Service January 12, 2019 Anesthesia Post Procedure Vital Signs Vital Signs: Temp Pulse Pulse Resp BP Pulse Ox 01/12/19 12:21 36.1 C L 66 18 131/66 100 01/12/19 06:13 36.5 C 76 20 182/76 H 93 Pain Intensity Right Knee: Pain Intensity: 0 Transfer of Care Handoff Completed per policy Notes Mental Status: alert / awake / arousable Patient Amnestic to Procedure: Yes Nausea / Vomiting: adequately controlled Pain: adequately controlled Airway Patency, RR, SpO2: stable & adequate BP & HR: stable & adequate Hydration State: stable & adequate Anesthetic Complications: no major complications apparent
--- NOTE | 2019-01-12 12:53 | Anesthesia Procedure Note ---
Date of Service January 12, 2019 Anesthesia Post Epidural Note Vital Signs Vital Signs: Temp Pulse Pulse Resp BP Pulse Ox 01/12/19 12:21 36.1 C L 66 18 131/66 100 01/12/19 06:13 36.5 C 76 20 182/76 H 93 Pain Intensity Right Knee: Pain Intensity: 0 Notes Mental Status: alert / awake / arousable Nausea / Vomiting: adequately controlled Pain: adequately controlled Airway Patency, RR, SpO2: stable & adequate BP & HR: stable & adequate Hydration State: stable & adequate Neuraxial Anesthesia: was administered and sensory block is resolving Anesthetic Complications: no major complications apparent and Pt Satisfied with anesthetic care Epidural: Removed without complications, With tip intact and See Notes Notes: Epidural tip determined to be in epidural space during procedure. Provided excellent analgesia for surgical procedure.
--- NOTE | 2019-01-12 13:21 | XRay Report ---
XR tibia fibula RT 2V CLINICAL HISTORY: post-op hardware removal right tibia COMPARISON: None. DISCUSSION: Evidence for total right knee arthroplasty. Good contact between prosthetic and underlyin g bone. Old healed fractures of the mid and distal shaft of the fibula. Operative screw holes within the distal tibia. No acute bony abnormality. There is no evidence for so ft tissue swelling. IMPRESSION: Postoperative changes noted. No acute process. The above report was generated using voice recognition software. It may contain grammatical, syntax or spelling errors. Electronically signed by: Raji Rich M.D. 01/12/2019 1:20 PM
--- NOTE | 2019-01-12 13:25 | XRay Report ---
XR knee RT 2V routine CLINICAL HISTORY: Postoperative examination COMPARISON: 01/07/2018 DISCUSSION: There are postsurgical changes of a total right knee arthroplasty with a long stem tibial component. There are no acute fractures. There are postsurgical changes involving the patella. There is aortic the soft tissues consistent with recent surgery. There is an old mid fibular fracture. IMPRESSION: Postsurgical changes of a total right knee arthroplasty. Electronically signed by: Ayan Pimentel M.D. 01/12/2019 1:23 PM
[2019-01-12] MEDS ORDERED: SODIUM CHLORIDE 0.9% 1000ML 1,000 ML IV SCH (14:30)
[2019-01-12] MEDS: ACETAMINOPHEN 500 MG TAB PO SCH ×2 (14:41→21:46)
[2019-01-12] MEDS: GABAPENTIN 300 MG CAP PO SCH ×2 (14:42→20:49)
[2019-01-12] MEDS: CHECK SCOPOLAMINE PATCH PLACEMENT SCH ×2 (15:33→23:53)
[2019-01-12] MEDS: CEFAZOLIN 2000MG 2,000 MG/15 ML SYR IV SCH ×2 (15:33→23:48)
--- NOTE | 2019-01-12 16:09 | Orthopedic Progress Note ---
Date of Service January 12, 2019 Assessment & Plan (1) S/P total knee replacement using cement: Resume diet. Continue antibiotics 2 doses. Check labs in the a.m. Continue pain control. DVT prophylaxis: TEDs & Foot pumps while in the hospital. Resume Eliquis 01/13/19. DC Kera 01/13/19 in am. Change dressing to Silverlon on postop day #2 or prior to discharge whichever comes first. WBAT with immobilizer and walker for 2 weeks,, continue walker for minimum 6 weeks. Does not need the immobilizer while laying in bed or sitting in a chair. PT/OT. Appreciate medicine input for medical management. DC planning. Present on Admission?: No Subjective Doing well Physical Exam Physical Exam: RLE: Sensation to light touch is intact distally. Brisk cap refill less than 2 seconds. Able to wiggle her toes and ankle up and down. Able to perform a straight leg raise. Dressing is clean, dry, and intact. Calf is soft and nontender. Results & Data Vital Signs (Past 12 Hours) Vital Signs Temp Pulse Pulse Pulse Pulse Resp BP 01/12/19 15:29 18 01/12/19 14:24 66 16 01/12/19 14:04 65 18 01/12/19 13:25 36.5 C 63 17 01/12/19 13:09 36.3 C L 01/12/19 13:05 61 17 152/72 H 01/12/19 13:00 61 19 156/69 H 01/12/19 12:55 36.3 C L 61 16 138/71 01/12/19 12:50 62 17 153/69 H 01/12/19 12:46 67 14 132/68 01/12/19 12:45 63 17 01/12/19 12:40 61 16 152/81 H 01/12/19 12:35 61 18 148/82 H 01/12/19 12:30 70 18 153/74 H 01/12/19 12:25 63 20 152/76 H 01/12/19 12:21 36.1 C L 66 15 131/66 01/12/19 12:20 18 01/12/19 06:13 36.5 C 76 20 BP Pulse Ox 01/12/19 15:29 143/73 H 95 01/12/19 14:24 164/84 H 99 01/12/19 14:04 158/79 H 100 01/12/19 13:25 145/72 H 95 01/12/19 13:09 94 01/12/19 13:05 95 01/12/19 13:00 95 01/12/19 12:55 95 01/12/19 12:50 95 01/12/19 12:46 97 01/12/19 12:45 97 01/12/19 12:40 99 01/12/19 12:35 99 01/12/19 12:30 99 01/12/19 12:25 99 01/12/19 12:21 131/66 99 01/12/19 12:20 92 01/12/19 06:13 182/76 H 93 Diagnostic Findings AP and lateral right knee and right tib-fib, show the previous intramedullary alissa and locking screws removed. Components for total knee replacement, with a long stem sufficiently past the proximal locking holes. Components are stable and cemented. There is a K wire noted within and acting as a cerclage around the inferior patella.
[2019-01-12] MEDS ORDERED: FUROSEMIDE 20 MG TAB PO SCH (17:00)
[2019-01-12] MEDS: FERROUS GLUCONATE 324 MG TAB PO SCH (18:00)
[2019-01-12] MEDS: ASCORBIC ACID 500 MG TAB PO SCH (18:00)
[2019-01-12] MEDS: OXYBUTYNIN CHLORIDE 5 MG TAB PO SCH (20:49)
[2019-01-12] MEDS: ATORVASTATIN 20 MG TAB PO SCH (20:49)
[2019-01-12] MEDS: SENNA 8.6 MG TAB PO SCH (20:49)
[2019-01-12] MEDS: DOCUSATE SODIUM 100 MG CAP PO SCH (20:49)
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
[2019-01-13] MEDS: ACETAMINOPHEN 500 MG TAB PO SCH ×3 (05:58→21:41)
[2019-01-13] MEDS: LEVOTHYROXINE SODIUM 75 MCG TABLET PO SCH (05:58)
[2019-01-13 06:02] LABS: Hemoglobin 9.3 g/dL (12.0-16.0); Mean Corpuscular Hgb Conc 33.2 g/dL (32-36); Mean Corpuscular Volume 88.1 fL (80-100); Mean Platelet Volume 8.8 fL (7.4-10.4); Platelet Count 158 K/uL (130-400); RDW Coefficient of Variation 12.6 % (11.5-14.5); RDW Standard Deviation 41.2 fL (36.4-46.3); Red Blood Count 3.18 M/uL (4.2-5.4); White Blood Count 9.74 K/uL (4.8-10.8)
[2019-01-13 06:31] LABS: BUN Creatinine Ratio 16.6 (10-20); Calcium 8.1 mg/dl (8.5-10.1); Creatinine Clr Calc Pharmacy 36.2 ml/min; Est GFR (African American) 42.1; Est GFR (Non-African American) 36.3; Potassium 4.3 mmol/L (3.5-5.1)
[2019-01-13] MEDS: DOCUSATE SODIUM 100 MG CAP PO SCH ×2 (07:31→20:55)
[2019-01-13] MEDS: CHECK SCOPOLAMINE PATCH PLACEMENT SCH ×3 (07:31→23:38)
[2019-01-13] MEDS: OXYBUTYNIN CHLORIDE 5 MG TAB PO SCH ×2 (07:31→20:55)
[2019-01-13] MEDS: APIXABAN 2.5 MG TAB PO SCH ×2 (07:31→20:55)
[2019-01-13] MEDS: CHOLECALCIFEROL 1,000 UNITS TAB PO SCH (07:32)
[2019-01-13] MEDS: GABAPENTIN 300 MG CAP PO SCH ×3 (07:32→20:55)
[2019-01-13] MEDS: MULTIVITAMIN TAB PO SCH (07:32)
[2019-01-13] MEDS: ASCORBIC ACID 500 MG TAB PO SCH ×2 (07:32→16:45)
[2019-01-13] MEDS: FERROUS GLUCONATE 324 MG TAB PO SCH ×2 (07:33→16:45)
[2019-01-13] MEDS: METOPROLOL SUCC 50MG EXT REL TAB PO SCH (07:34)
--- NOTE | 2019-01-13 08:45 | Anesthesiology Progress Note ---
Date of Service January 13, 2019 Anesthesia Post Procedure Vital Signs Vital Signs: Temp Pulse Pulse Pulse Resp BP BP 01/13/19 08:00 36.5 C 57 L 18 128/76 01/13/19 06:03 01/13/19 03:10 36.4 C L 57 L 16 109/69 01/12/19 23:22 36.3 C L 58 L 16 118/70 01/12/19 15:29 18 143/73 H 01/12/19 14:24 66 16 164/84 H 01/12/19 14:04 65 18 158/79 H 01/12/19 13:25 36.5 C 63 17 145/72 H 01/12/19 13:09 36.3 C L 01/12/19 13:05 61 17 152/72 H 01/12/19 13:00 61 19 156/69 H 01/12/19 12:55 36.3 C L 61 16 138/71 01/12/19 12:50 62 17 153/69 H 01/12/19 12:46 67 14 132/68 01/12/19 12:45 63 17 01/12/19 12:40 61 16 152/81 H 01/12/19 12:35 61 18 148/82 H 01/12/19 12:30 70 18 153/74 H 01/12/19 12:25 63 20 152/76 H 01/12/19 12:21 36.1 C L 66 15 131/66 131/66 01/12/19 12:20 18 Pulse Ox 01/13/19 08:00 95 01/13/19 06:03 96 01/13/19 03:10 100 01/12/19 23:22 100 01/12/19 15:29 95 01/12/19 14:24 99 01/12/19 14:04 100 01/12/19 13:25 95 01/12/19 13:09 94 01/12/19 13:05 95 01/12/19 13:00 95 01/12/19 12:55 95 01/12/19 12:50 95 01/12/19 12:46 97 01/12/19 12:45 97 01/12/19 12:40 99 01/12/19 12:35 99 01/12/19 12:30 99 01/12/19 12:25 99 01/12/19 12:21 99 01/12/19 12:20 92 Pain Intensity Right Knee: Pain Intensity: 0 Notes Mental Status: alert / awake / arousable and participated in evaluation Patient Amnestic to Procedure: Yes Nausea / Vomiting: adequately controlled Pain: adequately controlled Airway Patency, RR, SpO2: stable & adequate BP & HR: stable & adequate Hydration State: stable & adequate Neuraxial Anesthesia: was administered and sensory block resolved Anesthetic Complications: no major complications apparent and Pt Satisfied with anesthetic care
--- NOTE | 2019-01-13 09:38 | Orthopedic Progress Note ---
Date of Service January 13, 2019 Assessment & Plan (1) S/P total knee replacement using cement: POD # 1, s/p removal hardware and R TKA, doing very well. Resume diet. Completed antibiotics 2 doses post-op. Hgb 9.3 Continue pain control. DVT prophylaxis: TEDs & Foot pumps while in the hospital. Resume Eliquis 01/13/19. DC Kera 01/13/19 in am. Change dressing to Silverlon on postop day #2 or prior to discharge whichever comes first. WBAT with immobilizer and walker for 2 weeks,, continue walker for minimum 6 weeks. Does not need the immobilizer while laying in bed or sitting in a chair. PT/OT. Appreciate medicine input for medical management. DC planning. Subjective Doing very well, better than before surgery. Wants to go home and see her cats. Physical Exam Physical Exam: Up standing in the bathroom. Ambulated with walker and immobilizer. Dressing C/D/I. Results & Data Vital Signs (Past 12 Hours) Vital Signs Temp Pulse Pulse Resp BP Pulse Ox 01/13/19 08:00 36.5 C 57 L 18 128/76 95 01/13/19 06:03 96 01/13/19 03:10 36.4 C L 57 L 16 109/69 100 01/12/19 23:22 36.3 C L 58 L 16 118/70 100 Laboratory Results 01/13/19 01/13/19 Range/Units 05:44 05:44 WBC 9.74 (4.8-10.8) K/uL RBC 3.18 L (4.2-5.4) M/uL Hgb 9.3 L (12.0-16.0) g/dL Hct 28.0 L (37-47) % MCV 88.1 (80-100) fL MCH 29.2 (25-34) pg MCHC 33.2 (32-36) g/dL RDW Std Deviation 41.2 (36.4-46.3) fL RDW Coeff of Ellyn 12.6 (11.5-14.5) % Plt Count 158 (130-400) K/uL MPV 8.8 (7.4-10.4) fL Sodium 142 (136-145) mmol/L Potassium 4.3 (3.5-5.1) mmol/L Chloride 108 H (98-107) mmol/L Carbon Dioxide 27 (21-32) mmol/L Anion Gap 6.0 (3-11) BUN 24 H (7-18) mg/dl Creatinine 1.42 H (0.6-1.2) mg/dl Est Cr Clr Drug Dosing 36.2 ml/min Est GFR ( Amer) 42.1 Est GFR (Non-Af Amer) 36.3 BUN/Creatinine Ratio 16.6 (10-20) Glucose 123 H (70-99) mg/dl Calcium 8.1 L (8.5-10.1) mg/dl
--- NOTE | 2019-01-13 15:03 | Orthopedic Progress Note ---
Date of Service January 13, 2019 Assessment & Plan (1) S/P total knee replacement using cement: POD # 1, s/p removal hardware and R TKA, doing very well. Continue regular diet. Tolerating PO fluids. Completed antibiotics 2 doses post-op. Hgb 9.3 Continue pain control. Tolerating PO meds. DVT prophylaxis: TEDs & Foot pumps while in the hospital. Resumed Eliquis 01/13/19. Cote DCd01/13/19 in am. Change dressing to Silverlon on postop day #2 or prior to discharge whichever comes first. WBAT with immobilizer and walker for 2 weeks,, continue walker for minimum 6 weeks. Does not need the immobilizer while laying in bed or sitting in a chair. Continue PT/OT. Appreciate Medicine input. Discharge planning to home with home health. Plan to DC home on 01-14-19. Appreciate medicine input for medical management. DC planning. I, Dr. Weldon, saw and examined the patient and discussed the management with my PA. I reviewed my PAs note and agree with the documented findings and the plan of care I developed. Subjective Patient states she is doing well. Had PT/OT today. Denies f/c/s, s/s of infection, CP, SOB. Pain controlled. Physical Exam Physical Exam: Pt in bed resting, watching TV. R knee dressings intact. LLE anthony hose and B foot pumps on. Right knee with ice pack. NV intact B LE, palpable DP and PT pulses. Brisk capillary refill. Sensation intact to light touch. 5/5 B EHL, TA, gastroc strength. B calves soft. Results & Data Vital Signs (Past 12 Hours) Vital Signs Temp Pulse Pulse Resp BP Pulse Ox 01/13/19 12:19 36.6 C 67 16 126/72 97 01/13/19 08:00 36.5 C 57 L 18 128/76 95 01/13/19 06:03 96 01/13/19 03:10 36.4 C L 57 L 16 109/69 100 Laboratory Results 01/13/19 01/13/19 Range/Units 05:44 05:44 WBC 9.74 (4.8-10.8) K/uL RBC 3.18 L (4.2-5.4) M/uL Hgb 9.3 L (12.0-16.0) g/dL Hct 28.0 L (37-47) % MCV 88.1 (80-100) fL MCH 29.2 (25-34) pg MCHC 33.2 (32-36) g/dL RDW Std Deviation 41.2 (36.4-46.3) fL RDW Coeff of Ellyn 12.6 (11.5-14.5) % Plt Count 158 (130-400) K/uL MPV 8.8 (7.4-10.4) fL Sodium 142 (136-145) mmol/L Potassium 4.3 (3.5-5.1) mmol/L Chloride 108 H (98-107) mmol/L Carbon Dioxide 27 (21-32) mmol/L Anion Gap 6.0 (3-11) BUN 24 H (7-18) mg/dl Creatinine 1.42 H (0.6-1.2) mg/dl Est Cr Clr Drug Dosing 36.2 ml/min Est GFR ( Amer) 42.1 Est GFR (Non-Af Amer) 36.3 BUN/Creatinine Ratio 16.6 (10-20) Glucose 123 H (70-99) mg/dl Calcium 8.1 L (8.5-10.1) mg/dl
--- NOTE | 2019-01-13 18:13 | Hospitalist Progress Note ---
Date of Service January 13, 2019 Assessment & Plan (1) S/P total knee replacement using cement: Status post right TKA on 01/12. Doing well postoperatively, orthopedic surgery managing postop care. -Continue pain control with acetaminophen scheduled, Dilaudid IV as needed, and oxycodone as needed. 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 Currently in sinus rhythm on examination -Maintained on metoprolol for rate control -Is on Eliquis for anticoagulation-of note, her 2.5 mg dose was recently increased to the 5 mg dose-we will continue 2.5 mg dose for now-creatinine did slightly increased today -If creatinine less than 1.5 tomorrow, will go ahead and increase Eliquis dose to 5 mg twice daily upon discharge (6) Hyperlipidemia: Stable -Continue atorvastatin 20 mg daily (7) GERD (gastroesophageal reflux disease): No acute issues -Not on any medications currently (8) Chronic kidney disease: CKD stage III with a history of acute renal failure requiring hospitalization in the fall 2017. Preop creatinine was 1.25 Creatinine with slight increase today to 1.4 -Continue to hold Lasix Received IV fluids overnight, none further needed -Check BMP again in the morning -Avoid nephrotoxins -Renally dose medications when appropriate (9) [place] filter in place: IVC filter in place and seen on preoperative chest x-ray Patient denies having a blood clot in the past-unclear why this was placed (10) Bilateral lower extremity edema: Does not seem significant at this time -Is maintained on Lasix She has normal cardiac function on recent echocardiogram -Holding Lasix for now as above (11) Morbid obesity: BMI 41.7 -Needs weight loss and healthy diet (12) Hypertension: Blood pressures well controlled -Continue metoprolol -Holding Lasix (13) Osteoporosis: With history of hip fracture with fall -Continue Fosamax once weekly (14) DVT prophylaxis: Eliquis Disposition-remain on surgical floor, possible discharge tomorrow Hospitalist service will follow along-may need nocturnal home O2 after discharge and will likely increase Eliquis to 5 mg p.o. twice daily upon discharge. Subjective Patient feeling very well today. Pain is controlled in the knee. Denies chest pain or shortness of breath. Denies nausea or vomiting. She is tolerating p.o. well. Denies lightheadedness or headache. She is making plenty of urine and has not moved her bowels yet. Review of Systems Review of Systems: All systems reviewed & are unremarkable except as noted in HPI & below Physical Exam Constitutional: WD/WN, vitals as above + obese Eyes: PERRL, conjunctivae normal, anicteric sclerae ENMT: external ear and nose normal, oropharynx normal (Edentulous) Neck: trachea midline, no thyromegaly Respiratory: normal respiratory effort, lungs clear to auscultation Auscultation: + diminished lung sounds (Throughout) Cardiovascular: Rate/Rhythm: regular rate and regular rhythm Heart Sounds: no murmur Extremities: + edema (Trace edema of the right leg) Gastrointestinal (Abdomen): normal bowel sounds, soft, nontender, no hepatosplenomegaly Musculoskeletal: Extremities: + extremities abnormal to inspection (Right knee with Serafin wrap in place), no cyanosis and no clubbing Skin: no rashes, warm and dry Neurologic: moves all extremities and awake; no focal motor deficits Psychiatric: A+Ox3, euthymic affect Results & Data Vital Signs (Past 12 Hours) Vital Signs Temp Pulse Resp BP Pulse Ox 01/13/19 16:26 36.4 C L 18 147/56 H 94 01/13/19 12:19 36.6 C 67 16 126/72 97 01/13/19 08:00 36.5 C 57 L 18 128/76 95 Laboratory Results 01/13/19 01/13/19 Range/Units 05:44 05:44 WBC 9.74 (4.8-10.8) K/uL RBC 3.18 L (4.2-5.4) M/uL Hgb 9.3 L (12.0-16.0) g/dL Hct 28.0 L (37-47) % MCV 88.1 (80-100) fL MCH 29.2 (25-34) pg MCHC 33.2 (32-36) g/dL RDW Std Deviation 41.2 (36.4-46.3) fL RDW Coeff of Ellyn 12.6 (11.5-14.5) % Plt Count 158 (130-400) K/uL MPV 8.8 (7.4-10.4) fL Sodium 142 (136-145) mmol/L Potassium 4.3 (3.5-5.1) mmol/L Chloride 108 H (98-107) mmol/L Carbon Dioxide 27 (21-32) mmol/L Anion Gap 6.0 (3-11) BUN 24 H (7-18) mg/dl Creatinine 1.42 H (0.6-1.2) mg/dl Est Cr Clr Drug Dosing 36.2 ml/min Est GFR ( Amer) 42.1 Est GFR (Non-Af Amer) 36.3 BUN/Creatinine Ratio 16.6 (10-20) Glucose 123 H (70-99) mg/dl Calcium 8.1 L (8.5-10.1) mg/dl
[2019-01-13] MEDS: SENNA 8.6 MG TAB PO SCH (20:55)
[2019-01-13] MEDS: ATORVASTATIN 20 MG TAB PO SCH (20:55)
[2019-01-14 05:38] LABS: Basophils # (auto) 0.01 K/uL (0-0.2); Basophils % (auto) 0.2 %; Eosinophils # (auto) 0.19 K/uL (0-0.5); Eosinophils % (auto) 3.4 %; Hematocrit (blood only) 23.9 % (37-47); Immature Granulocytes # (auto) 0.02 K/uL (0.00-0.02); Immature Granulocytes % (auto) 0.4 %; Lymphocytes # (auto) 0.84 K/uL (1.2-3.4); Lymphocytes % (auto) 14.9 %; Mean Corpuscular Hgb Conc 33.5 g/dL (32-36); Mean Corpuscular Volume 88.8 fL (80-100); Mean Platelet Volume 9.4 fL (7.4-10.4); Monocytes # (auto) 0.72 K/uL (0.11-0.59); Monocytes % (auto) 12.8 %; Neutrophils # (auto) 3.86 K/uL (1.4-6.5); Neutrophils % (auto) 68.3 %; Platelet Count 150 K/uL (130-400); RDW Coefficient of Variation 13.4 % (11.5-14.5); RDW Standard Deviation 43.2 fL (36.4-46.3); Red Blood Count 2.69 M/uL (4.2-5.4); White Blood Count 5.64 K/uL (4.8-10.8)
[2019-01-14] MEDS: ACETAMINOPHEN 500 MG TAB PO SCH ×3 (06:04→22:06)
[2019-01-14] MEDS: LEVOTHYROXINE SODIUM 75 MCG TABLET PO SCH (06:04)
[2019-01-14 06:09] LABS: BUN Creatinine Ratio 21.7 (10-20); Calcium 8.1 mg/dl (8.5-10.1); Creatinine Clr Calc Pharmacy 38.4 ml/min; Est GFR (African American) 45.1; Est GFR (Non-African American) 38.9; Potassium 4.1 mmol/L (3.5-5.1)
[2019-01-14] MEDS: CHECK SCOPOLAMINE PATCH PLACEMENT SCH ×2 (07:35→18:37)
[2019-01-14] MEDS: METOPROLOL SUCC 50MG EXT REL TAB PO SCH (07:35)
[2019-01-14] MEDS: APIXABAN 2.5 MG TAB PO SCH ×2 (07:36→20:43)
[2019-01-14] MEDS: ASCORBIC ACID 500 MG TAB PO SCH ×2 (07:36→18:36)
[2019-01-14] MEDS: CHOLECALCIFEROL 1,000 UNITS TAB PO SCH (07:36)
[2019-01-14] MEDS: OXYBUTYNIN CHLORIDE 5 MG TAB PO SCH ×2 (07:36→20:43)
[2019-01-14] MEDS: GABAPENTIN 300 MG CAP PO SCH ×3 (07:36→20:43)
[2019-01-14] MEDS: FERROUS GLUCONATE 324 MG TAB PO SCH ×2 (07:36→18:36)
[2019-01-14] MEDS: DOCUSATE SODIUM 100 MG CAP PO SCH ×2 (07:36→20:43)
[2019-01-14] MEDS: MULTIVITAMIN TAB PO SCH (07:36)
[2019-01-14] MEDS: OXYCODONE HCL IR 5 MG TAB (IMMEDIATE RELEASE) PO PRN ×3 (07:39→18:35)
--- NOTE | 2019-01-14 10:48 | Orthopedic Progress Note ---
Date of Service January 14, 2019 Assessment & Plan (1) S/P total knee replacement using cement: Patient is asymptomatic despite her anemia. She is compensating well. Possibility of it being dilutional was considered. She does not have IV fluid running but did drink a fair amount yesterday. I will speak with Dr. Weldon regarding discharge versus transfusion. She is on Eliquis. Wound looks good. Dressings will be changed today by nursing staff. Continue with PT/OT. I, Dr. Weldon, saw and examined the patient and discussed the management with my PA. I reviewed my PAs note and agree with the documented findings and the plan of care I developed. Subjective Patient is seen in her room this morning. She is already sitting in a chair and has finished her breakfast. She has no complaints at this time. No lightheadedness, shortness of breath, chest pain, dizziness, nausea, or vomiting. She did have some knee pain last night. No other complaints. Physical Exam Physical Exam: General: Well-developed, well-nourished elderly white female in no acute distress. Alert and oriented. Sitting in a chair. Conversive. Skin: Warm and dry with good turgor. Right knee has the Zipline system intact over her incision. No active drainage at the moment. Dressings are dry. No drainage at her distal screw removal sites either. Expected postoperative edema and ecchymosis. Musculoskeletal: Patient is intact motor function to her right lower extremity. She is able to flex and extend her knee actively. Intact motor function to the ankle. Neurologic: Gross sensation is intact across the right leg by soft touch. Peripheral pulses are 2+. Results & Data Vital Signs (Past 12 Hours) Vital Signs Temp Pulse Pulse Resp BP Pulse Ox Pulse Ox 01/14/19 06:48 36.7 C 73 18 125/68 97 01/14/19 02:00 71 92 01/13/19 22:53 36.5 C 69 16 116/68 96 01/13/19 22:52 36.5 C Laboratory Results H&H this morning are 8.0 and 23.9. They continue to trend down.
[2019-01-14 12:04] LABS: Hematocrit (blood only) 26.7 % (37-47)
--- NOTE | 2019-01-14 13:52 | Hospitalist Progress Note ---
Date of Service January 14, 2019 Assessment & Plan (1) S/P total knee replacement using cement: Status post right TKA on 01/12. Doing well postoperatively, orthopedic surgery managing postop care. -Continue pain control with acetaminophen scheduled, oxycodone as needed. Also takes gabapentin -Bowel regimen -PT/OT evaluations- patient plans on going home hopefully today -Eliquis for DVT prophylaxis (2) Hypothyroidism: Most recent TSH in 07/2018 normal -Continue home levothyroxine (3) Overactive bladder: Stable -Continue home oxybutynin (4) Sleep apnea: Recently diagnosed on home sleep study is ordered by her household appliance assembler -She has declined CPAP but is interested in nasal cannula - cqualifies for nocturnal O2 based on overnight POximetry study here--> she was <88% for >5 min through the night -ordered Home O2 2LNC qhs and CM assisting with obtaining this (5) Atrial fibrillation: History of asymptomatic paroxysmal atrial fibrillation diagnosed in 04/2018 during hospitalization. Currently in sinus rhythm on examination -Maintained on metoprolol for rate control -Is on Eliquis for anticoagulation-of note, her 2.5 mg dose was recently increased to the 5 mg dose as an outpt-we continued 2.5 mg dose in house as her scene and lighting design lecturer had a slight increas, however now scene and lighting design lecturer down to 1.3--> safe to return to the 5mg bid dose (6) Hyperlipidemia: Stable -Continue atorvastatin 20 mg daily (7) GERD (gastroesophageal reflux disease): No acute issues -Not on any medications currently (8) Chronic kidney disease: CKD stage III with a history of acute renal failure requiring hospitaliza tion in the fall 2018. Preop creatinine was 1.25 Creatinine with slight increase to 1.4 on POD#1, now returned to 1.3 -ok to restart Lasix upon discharge -Avoid nephrotoxins -Renally dose medications when appropriate -follow as outpt with PCP (9) [place] filter in place: IVC filter in place and seen on preoperative chest x-ray Patient denies having a blood clot in the past-unclear why this was placed (10) Bilateral lower extremity edema: Does not seem significant at this time -Is maintained on Lasix She has normal cardiac function on recent echocardiogram -Holding Lasix for now as above and can restart upon discharge (11) Morbid obesity: BMI 41.7 -Needs weight loss and healthy diet (12) Hypertension: Blood pressures well controlled -Continue metoprolol (13) Osteoporosis: With history of hip fracture with fall -Continue Fosamax once weekly (14) Acute blood loss as cause of postoperative anemia: hgb dropped to 8.0 on labs this AM, repeat hgb later back up to 9. Unclear if is lab error or not. Her hgb was 9.3 yesterday and she has no evidence of bleeding so therefore the 9.0 is likely the correct hgb Nonetheless, she is completely asymptomatic and doing well. Stable for discharge (15) DVT prophylaxis: Eliquis Disposition-medically stable for discharge today Hospitalist service will sign off at this time Subjective Pt feeling well. No lightheadedness, no N/V, she moved her bowels this AM. Denies blood in stool or urine. No abd pain. Knee pain controlled. Is eating. No chest pain or SOB Review of Systems Review of Systems: All systems reviewed & are unremarkable except as noted in HPI & below Physical Exam Constitutional: WD/WN, vitals as above + obese Eyes: PERRL, conjunctivae normal, anicteric sclerae ENMT: external ear and nose normal, oropharynx normal (Edentulous) Neck: trachea midline, no thyromegaly Respiratory: normal respiratory effort, lungs clear to auscultation Auscultation: + diminished lung sounds (Throughout) Cardiovascular: Rate/Rhythm: regular rate and regular rhythm Heart Sounds: no murmur Extremities: + edema (Trace edema of the right leg) Gastrointestinal (Abdomen): normal bowel sounds, soft, nontender, no hepatosplenomegaly Musculoskeletal: Extremities: + extremities abnormal to inspection (Right knee with dressing in place, FE hose on, moving legs well), no cyanosis and no clubbing Skin: no rashes, warm and dry Neurologic: moves all extremities and awake; no focal motor deficits Psychiatric: A+Ox3, euthymic affect Results & Data Vital Signs (Past 12 Hours) Vital Signs Temp Pulse Pulse Resp BP Pulse Ox Pulse Ox 01/14/19 06:48 36.7 C 73 18 125/68 97 01/14/19 02:00 71 92 Laboratory Results 01/14/19 01/14/19 01/14/19 Range/Units 11:50 05:16 05:16 WBC 5.64 (4.8-10.8) K/uL RBC 2.69 L (4.2-5.4) M/uL Hgb 9.0 L 8.0 L (12.0-16.0) g/dL Hct 26.7 L 23.9 L (37-47) % MCV 88.8 (80-100) fL MCH 29.7 (25-34) pg MCHC 33.5 (32-36) g/dL RDW Std Deviation 43.2 (36.4-46.3) fL RDW Coeff of Ellyn 13.4 (11.5-14.5) % Plt Count 150 (130-400) K/uL MPV 9.4 (7.4-10.4) fL Immature Gran % (Auto) 0.4 % Neut % (Auto) 68.3 % Lymph % (Auto) 14.9 % Garden % (Auto) 12.8 % Eos % (Auto) 3.4 % Baso % (Auto) 0.2 % Immature Gran # (Auto) 0.02 (0.00-0.02) K/uL Neut # (Auto) 3.86 (1.4-6.5) K/uL Lymph # (Auto) 0.84 L (1.2-3.4) K/uL Garden # (Auto) 0.72 H (0.11-0.59) K/uL Eos # (Auto) 0.19 (0-0.5) K/uL Baso # (Auto) 0.01 (0-0.2) K/uL Sodium 140 (136-145) mmol/L Potassium 4.1 (3.5-5.1) mmol/L Chloride 109 H (98-107) mmol/L Carbon Dioxide 28 (21-32) mmol/L Anion Gap 3.0 (3-11) BUN 29 H (7-18) mg/dl Creatinine 1.34 H (0.6-1.2) mg/dl Est Cr Clr Drug Dosing 38.4 ml/min Est GFR ( Amer) 45.1 Est GFR (Non-Af Amer) 38.9 BUN/Creatinine Ratio 21.7 H (10-20) Glucose 96 (70-99) mg/dl Calcium 8.1 L (8.5-10.1) mg/dl
[2019-01-14] MEDS: ATORVASTATIN 20 MG TAB PO SCH (20:43)
[2019-01-14] MEDS: SENNA 8.6 MG TAB PO SCH (20:43)
[2019-01-15] MEDS: CHECK SCOPOLAMINE PATCH PLACEMENT SCH (00:54)
[2019-01-15] MEDS: ACETAMINOPHEN 500 MG TAB PO SCH (05:41)
[2019-01-15] MEDS: LEVOTHYROXINE SODIUM 75 MCG TABLET PO SCH (05:41)
[2019-01-15] MEDS: METOPROLOL SUCC 50MG EXT REL TAB PO SCH (08:32)
[2019-01-15] MEDS: GABAPENTIN 300 MG CAP PO SCH (08:32)
[2019-01-15] MEDS: MULTIVITAMIN TAB PO SCH (08:33)
[2019-01-15] MEDS: APIXABAN 2.5 MG TAB PO SCH (08:33)
[2019-01-15] MEDS: OXYBUTYNIN CHLORIDE 5 MG TAB PO SCH (08:33)
[2019-01-15] MEDS: FERROUS GLUCONATE 324 MG TAB PO SCH (08:34)
[2019-01-15] MEDS: ASCORBIC ACID 500 MG TAB PO SCH (08:34)
[2019-01-15] MEDS: CHOLECALCIFEROL 1,000 UNITS TAB PO SCH (08:34)
[2019-01-15] MEDS: DOCUSATE SODIUM 100 MG CAP PO SCH (08:34)
[2019-01-15 08:38] LABS: Primidone, Serum <2.5 mg/L (5.0-12.0)
--- NOTE | 2019-01-15 10:38 | Orthopedic Progress Note ---
Date of Service January 15, 2019 Assessment & Plan (1) S/P total knee replacement using cement: POD # 3, s/p removal hardware and R TKA, doing very well. Continue regular diet. Tolerating PO fluids. Completed antibiotics 2 doses post-op. Last Hgb 9.0 Continue pain control. Tolerating PO meds. DVT prophylaxis: TEDs & Foot pumps while in the hospital. Resumed Eliquis 01/13/19. Change dressing to Silverlon on postop day #2 or prior to discharge whichever comes first. WBAT with immobilizer and walker for 2 weeks,, continue walker for minimum 6 weeks. Does not need the immobilizer while laying in bed or sitting in a chair. Continue PT/OT. Appreciate Medicine input. Discharge planning to home with home health. Plan to DC home on 01-15-19. Appreciate medicine input for medical management. DC planning. Subjective Patient is seen in her room this morning. She is already sitting in a chair and has finished her breakfast. She has no complaints at this time. Doing very well with PT/OT. Says her neighbor is coming to her later this AM. No lightheadedness, shortness of breath, chest pain, dizziness, nausea, or vomiting. Review of Systems Review of Systems: All systems reviewed & are unremarkable except as noted in HPI & below Physical Exam Physical Exam: Patient is intact motor function to her right lower extremity. She is able to flex and extend her knee actively from 0-65 degrees. Intact motor function to the ankle. Neurologic: Gross sensation is intact across the right leg by soft touch. Peripheral pulses are 2+. Results & Data Vital Signs (Past 12 Hours) Vital Signs Temp Pulse Pulse Resp BP Pulse Ox 01/15/19 09:46 36.7 C 69 75 16 128/72 97 01/15/19 07:59 36.7 C 69 16 128/72 97 01/14/19 23:45 36.7 C 75 16 124/73 99 Laboratory Results 01/14/19 01/12/19 Range/Units 11:50 06:50 Hgb 9.0 L (12.0-16.0) g/dL Hct 26.7 L (37-47) % Primidone <2.5 L (5.0-12.0) mg/L Phenobarbital <5.0 L (15.0-40.0) mg/L
[2019-01-17] MEDS ORDERED: ALENDRONATE SODIUM 70 MG TAB PO SCH (06:30)
--- NOTE | 2019-01-20 12:57 | Discharge Summary ---
Date of Service January 15, 2019 Principal Diagnosis Retained hardware right tibia; Right knee osteoarthritis Discharge Data Allergies Allergy/AdvReac Type Severity Reaction Status Date / Time grass pollen-perennial rye, Allergy Mild RASH Verified 01/18/19 17:13 standar naproxen AdvReac Severe DECREASED Verified 01/18/19 17:13 KIDNEY FUNCTION aspirin AdvReac Mild GI SYMPTOMS Verified 01/18/19 17:13 Consultations 01/12/19 12:40 Consult Case Management - Discharge Planning Routine Consult Hospitalist Routine 01/12/19 21:41 Consult Case Management - Discharge Planning Routine 01/14/19 10:21 Consult Case Management - Discharge Planning Routine Procedures Performed Operation Date: 01/12/19 07:00 Actual Procedures p Right Total Knee Arthroplasty, (Right) - Hermilohusam Weldon MD s Open Hardware Removal(Right) - Hermilo Johnny Weldon MD Ordered Studies 01/12/19 05:00 US - OR guided needle placemen Routine 01/12/19 07:00 FL ankle RT 2V Routine FL fluoroscopy <1hr Routine Hospital Course (1) S/P total knee replacement using cement: 73 yr old female with right knee osteoarthritis and retained hardware was admitted to [facility] after undergoing surgery under spinal anesthetic to include right tibia hardware removal, right total knee replacement. Intra-operatively she had a patellar fracture which was internally fixated. She tolerated procedure as well as pre and post antibiotics, keflex. Medicine was consulted for medical management of co-morbidities including hypothyroidism, overactive bladder, sleep apnea, A-fib, hyperlipidemia,, GERD, chronic kidney disease, hypertension, obesity, LE edema, chirag filter, osteoporosis. Hospital course as follows. Eliquis restarted for DVT prophylaxis on POD 1 in am. POD 0 FE hose, foot pumps. Lasix was held in-house. Patient declined inhouse use of CPAP but agreed and tolerated nasal cannula O2. Medicine also ordered for home upon D/C 2LNC qhs. On POD 1 silva was DCd. On POD 2 acute post-op blood loss anemia with Hgb dropping from 9.3 on POD 1 to 8 on POD 2. It was however repeated POD 2 pm and improved to 9. Patient tolerated PO fluids and diet. Pain controlled with PO medication. Able to void. Participated in PT/OT with restrictions of WBAT in knee immobilizer for 2wks with use of walker. Incision was changed to silvelone to remain on unti f/u appointment in 2wks. Director Of Academic Support coordinated HHPT. Patient deemed stable for DC on POD 2 evening. However, O2 was not delivered yet to her home and she didnt have a ride. She then left hospital on POD 3 am. She has a f/u appointment scheduled with our office and was advised to call with any questions or concerns at [phone]. Total Time Total Time Spent Total Time Spent (In Minutes): 20 Discharge Plan Discharge Items Patient Disposition: Home - Home Health Services Reason For Visit: Right Knee Osteoarthritis, Retained Hardware Discharge Diagnosis: Right knee Osteoarthritis, Retained Hardware. S/P RTKR, ORIF patellar fracture, hardware removal tibia. Discharge Goals: Decrease discomfort, Improve function, Increase independence and Therapeutic intervention Activity: Per 'Additional Instructions' section Lifting: Wait until after follow-up appointment Bathing: Keep incision dry Bathing Comment: keep silvelone dressing on until f/u appointment in office. Exercise/Sports: Wait until after follow-up appointment Exercise Comment: per physical therapy protocol Driving/Machine Use Comment: no driving until seen in office; approximately 6wks Weightbearing: Right weightbearing Weightbearing Comment: as tolerated with knee immobilizer x 2wks and walker x 6wks Non-emergency contact: Surgeon Call non-emergency contact if: your pain is not controlled, your temperature is above 101.5, your wound has increased redness and your wound has increased drainage Follow-up/Referrals: Constance Casiano CRNP [Primary Care Provider] - 01/20/19 10:00 am (Please, follow up at TIEN Casiano's office with her associate, Clara Mendez PA-C, on FridayJanuary 20 at 10:00 am. *If you need to change this appointment, call their office at [phone].) Hermilo Weldon MD [Physician] - 01/27/19 1:15 pm (with Maggie Iniguez PA-C) Diet: Regular Addtl Provider Instructions: Post-operative Instructions Pain Expect to be in a fair amount of pain after surgery. Remember, our goal is not to eliminate your pain, but to make it tolerable. It is a good idea to stay ahead of your pain by taking the medications you were prescribed once you get home. Typically, the pain starts improving 3-7 days after surgery. You should start weaning off the narcotic pain medication (oxycodone) as soon as your pain improves. You can always substitute with Tylenol 2 tab every 6 hours. Please call our office if your pain is not adequately controlled. Ice Ice your operative site at least 5 times a day for 15-30 minutes at a time. Make sure you have a thin cloth between the ice or cooling unit and your skin to prevent kumar bite. This is especially important if you received a nerve block. Continue icing your operative site for the first 5-7 days after surgery, then as needed. Diet/Nausea/Vomiting Start by drinking clear liquids and eating crackers. If you can tolerate this, then you may resume your normal diet. If you feel nauseated or vomit, take Zofran/ondansetron (if prescribed). Please call our office if you have intractable nausea or vomiting, or, if after hours, you may go to the Emergency Room for help. Constipation Constipation is a common side effect of narcotic pain medication. If you have not had a bowel movement within 2 days after surgery, we recommend purchasing an over the counter laxative such as Milk of Magnesia, Dulcolax, or Miralax from a local pharmacy, and taking it as instructed. Call our clinic if any questions. Knee Brace Knee brace should be worn when you are ambulating for the first 2weeks until seen in the office. You can remove at rest, when doing exercises, and when sleeping. Nerve block The anesthesia team sometimes places a nerve block to help with post-operative pain control. This results in significant numbness and inability to move the extremity. The nerve block usually wears off in 8-12 hours, but sometimes can last up to 24 hours. Please call our office if you are still unable to move your extremity after 24 hours, unless you received a pain pump to take home. Nerve blocks typically wear off quickly, so start taking pain medication as soon as you start feeling soreness near your surgical site. Weight bearing and Range of Motion. Weightbear as tolerated right leg with walker x 6wks. Range of motion as tolerated. Physical therapy You will intitially have home health physical therapy. Outpatient therapy will be discussed at your 2 wk f/u appointment. Wound care and showering We will inspect your wound at your first post-operative visit, and may do a dressing change at that time. Most patients will be in a water-proof dressing that is removed 14 days after surgery. It is normal to see some dried blood on the dressing. Do not remove your dressing, paper strips or sutures yourself unless you are given permission. Showering is allowed the day after surgery. Do not scrub or remove any dressings. The wound should not be submerged underwater (i.e. in a bathtub or pool) until 4 weeks after surgery FE stockings If you were given white stockings, these are to be worn at all timed during the day. You can remove to shower and to sleep. We typically recommend these until your 2wk appointment. Driving You may not drive while taking narcotic pain medication or while in a cast, splint, sling or brace. You, the patient, need to make the final determination about when you are safe to drive, however, the earliest you may consider driving after surgery is below: Hip,/Knee/Ankle Surgery: 4-6 weeks Return to Work Your return to work depends on what surgery was done and what type of work you do. Please bring any paperwork your employer needs completed to your first post-operative visit. Also, bring a description of your job duties, as this helps us to understand what risks you may face at work. Travel Avoid long distance travel (greater than 1 hour) in airplanes and cars for the first 4- 6 weeks after surgery. If you must travel, please let us know. Follow-up You should have a follow-up appointment already scheduled 2 wks after surgery. If not, please contact our office to make this appointment before you leave the hospital. Medications: Upon discharge new medications will include Oxycodone for severe pain, Tylenol for mild to moderate pain (over the counter), iron for 2wks, vitamin c for 2wks. We also want you to continue your eliquis as you previously were taking to hel p prevent blood clots as well as you underlying medical conditions. When to call the office [phone] It is normal to have swelling and bruising in the limb that was operated on. This will improve with time. It is also normal to have fevers for the first 2 days after surgery. Reasons you should call your doctor include: Uncontrolled pain; Nausea, vomiting, or constipation that does not improve with medication; Fevers over 101.5, chills, sweats; Drainage or bleeding from the wound; Foul odor; Spreading areas of redness; Any other concerns Prescriptions: New docusate sodium 100 mg Capsule 100 mg PO BID Qty: 60 RF: 0 oxycodone 5 mg Tablet 5 - 10 mg PO Q4H PRN (Reason: pain) Qty: 30 RF: 0 Continued atorvastatin 20 mg Tablet 20 mg PO HS RF: 0 metoprolol succinate 50 mg Tablet Extended Release 24 Hr 50 mg PO QAM RF: 0 gabapentin 300 mg Capsule 300 mg PO TID RF: 0 furosemide [Lasix] 20 mg Tablet 20 mg PO BID RF: 0 cholecalciferol (vitamin D3) [Vitamin D3] 2,000 unit Tablet 4,000 unit PO QAM RF: 0 alendronate 70 mg tablet 70 mg PO WK RF: 0 levothyroxine 75 mcg Tablet 75 mcg PO QAM RF: 0 oxybutynin chloride 5 mg tablet 5 mg PO BID RF: 0 Discontinued Eliquis 2.5 mg Tablet 2.5 mg PO BID RF: 0 cephalexin 500 mg Capsule 500 mg PO TID RF: 0 No Action Eliquis 2.5 mg tablet 2.5 mg PO BID RF: 0 ascorbic acid (vitamin C) [Vitamin C] 500 mg tablet 500 mg PO BID RF: 0 cefdinir 300 mg capsule 300 mg PO BID 10 Days Qty: 20 RF: 0 sulfamethoxazole-trimethoprim [Bactrim DS] 800-160 mg tablet 1 tab PO BID Qty: 20 RF: 0 Stand-Alone Forms: [facility], [facility]/Other Patient Handouts: DVT Prevent Discharge Orders: Discharge Order (Routine); Ordered 01/14/19 Ordered By: Keira Iniguez Admission Data Admit Date/Time: 01/12/19 12:40 Attending Provider: Hermilo Weldon Admit Provider: Hermilo Weldon Primary Care Provider: Constance Casiano Other Providers: Sonam Witt Service: Surgical Services Other Interventions: Discharge Summary Assessment (RN) Last Done: 01/15/19 09:46 Pending Studies at Discharge: No DC Date/Time DO NOT enter until pt leaves facility: 01/15/19 12:24
== END 2019-01-15 12:24 | disposition home health service (06) | DRG 470 ==
LOC: ASU 05:20 → 3E 12:40